=== PATIENT | female | born 1980 | race Caucasian/White ===

== ENCOUNTER 2020-08-03 11:14 | Emergency (ER) | payer MEDICAID ==
[~2020-08-03] VITALS: Ht 160 cm; Wt 77.1 kg
--- OUTSIDE RECORDS SUMMARY | 2020-08-03 13:26 | XMS ---
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 Loretta VISIT COUNT (12 MO.) 1 [facility]. 6 [facility]. [address] [facility]. TOTAL 8 NOTE: Visits indicate total known visits. ED/UCC VISIT TRACKING (12 MO.) 08/03/2020 11:15 [facility] TYPE: Emergency COMPLAINT: - VAGINAL BLEEDING, APROX 17 WKS 07/24/2020 19[facility] DIAGNOSES: - Antepartum hemorrhage, unspecified, unspecified trimester - vaginal bleeding 07/13/2020 20:03 [facility] TYPE: Emergency COMPLAINT: - Migraine DIAGNOSES: - Headache - Migraine - Other migraine, not intractable, without status migrainosus 05/28/2020 20:[facility]: [facility] DIAGNOSES: - Migraine, unspecified, not intractable, without status migrai - headache 05/18/2020 18:35 [facility]: [facility] DIAGNOSES: - Hemorrhage in early , unspecified - spotting; 04/10/2020 22:[facility]: [facility] DIAGNOSES: - Headache - HEADACHE 04/06/2020 21:11 [facility]: [facility] DIAGNOSES: - migraine - Migraine, unspecified, not intractable, without status migrai 11/29/2019 12:47 [facility] [place] TYPE: Emergency DIAGNOSES: - headache - Migraine, unspecified, not intractable, without status migrai INPATIENT VISIT TRACKING (12 MO.) No inpatient visits to display in this time frame [email or web address]
== END 2020-08-03 16:29 | disposition home or self-care (01) ==
LOC: ED 11:14
DX: O20.0 Threatened abortion (principal); Z3A.17 17 weeks gestation of pregnancy; Z87.891 Personal history of nicotine dependence
CPT/HCPCS: 76815; 80048; 81001; 84702; 85025; 86900; 86901; 87210; 87491; 87591; 99284-25

== ENCOUNTER 2020-08-05 15:04 | Emergency (ER) | payer MEDICAID ==
[~2020-08-05] VITALS: Ht 160 cm; Wt 77.1 kg
--- OUTSIDE RECORDS SUMMARY | 2020-08-05 15:08 | XMS ---
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 Loretta VISIT COUNT (12 MO.) 1 [facility]. 6 [facility] 2 [facility]. TOTAL 9 NOTE: Visits indicate total known visits. ED/UCC VISIT TRACKING (12 MO.) 08/05/2020 15:05 [facility] TYPE: Emergency COMPLAINT: - 18 WK GESTATION VAGINAL BLEEDING 08/03/2020 11:15 [facility] TYPE: Emergency COMPLAINT: - VAGINAL BLEEDING, APROX 17 WKS 07/24/2020 19:18 [facility] TYPE: Emergency DIAGNOSES: - Antepartum hemorrhage, unspecified, unspecified trimester - vaginal bleeding 07/13/2020 20:03 [facility] TYPE: Emergency COMPLAINT: - Migraine DIAGNOSES: - Headache - Migraine - Other migraine, not intractable, without status migrainosus 05/28/2020 20:41 [facility] [place] TYPE: Emergency DIAGNOSES: - Migraine, unspecified, not intractable, without status migrai - headache 05/18/2020 18:35 [facility] [place] TYPE: Emergency DIAGNOSES: - Hemorrhage in early , unspecified - spotting; 04/10/2020 22:34 [facility] [place] TYPE: Emergency DIAGNOSES: - Headache - HEADACHE 04/06/2020 21:11 [facility] [place] TYPE: Emergency DIAGNOSES: - migraine - Migraine, unspecified, not intractable, without status migrai 11/29/2019 12:47 [facility] [place] TYPE: Emergency DIAGNOSES: - headache - Migraine, unspecified, not intractable, without status migrai INPATIENT VISIT TRACKING (12 MO.) No inpatient visits to display in this time frame [email or web address]
== END 2020-08-05 17:04 | disposition home or self-care (01) ==
LOC: ED 15:04
DX: O20.9 Hemorrhage in early pregnancy, unspecified (principal); Z3A.17 17 weeks gestation of pregnancy; Z87.891 Personal history of nicotine dependence
CPT/HCPCS: 81001; 99284